=== PATIENT | female | born 1940 | race Caucasian/White ===

== ENCOUNTER 2017-06-01 09:20 | Emergency (ER) | payer BC ==
[2017-06-01 09:34] VITALS: TEMP 97.7
--- NOTE | 2017-06-01 09:58 | EDPHY ---
H & P Smoking Status: Never smoked Time Seen by Provider: 06/01/17 09:39 HPI/ROS: CHIEF COMPLAINT: Diarrhea, near syncope HISTORY OF PRESENT ILLNESS: 76-year-old female presents to the emergency department by private vehicle after having a near syncopal episode at home early this morning. The patient states that she was a woken around midnight with abdominal cramping. She went into the bathroom and had several episodes of watery diarrhea. She did not notice any blood. She states that while she was sitting on the toilet she became extremely weak and collapsed to the floor. She does not think that she lost consciousness. She does not think that she hit her head. She states that she was so weak she was unable to get up off the floor. She laid there for about 10 minutes and then was able to get herself up get herself back into bed. She had several more episodes of diarrhea where she was able to ambulate to the bathroom. She has felt nauseous although no vomiting. She has a mild posterior headache. She denies chest pain or difficulty breathing. She still has some mild abdominal cramping. No recent travel. No fevers or chills. No URI symptoms. No neck or back pain. REVIEW OF SYSTEMS: Constitutional: No fever, no chills. Eyes: No double or blurry vision. ENT: No sore throat. Respiratory: No cough, no shortness of breath. Cardiac: No chest pain. Gastrointestinal: Abdominal cramping and diarrhea as above. No vomiting. Genitourinary: No dysuria. Musculoskeletal: No neck or back pain. Skin: No rashes. Neurological: headache. (Collette Mike) Past Medical/Surgical History: Seizure disorder on Trileptal, recent injection 5 days ago in her right eye for venous occlusion (Collette Mike) Social History: Single and lives alone in [place] (Collette Mike) Physical Exam: General Appearance: Alert, no distress. Mentating normally and answering questions appropriately. No visible signs of trauma to her head. Eyes: Pupils equal and round. Extraocular motions are all intact. ENT: Mouth: Mucous membranes very dry. Respiratory: No wheezing, rhonchi, or rales, lungs are clear to auscultation. Cardiovascular: Regular rate and rhythm. Gastrointestinal: Abdomen is soft and nontender, no masses, no rebound or guarding, bowel sounds normal. Neurological: Alert and oriented x 3, cranial nerves II through XII grossly intact Skin: Warm and dry, no rashes. Musculoskeletal: Nontender to palpate along the cervical, thoracic or lumbar spine. Neck is supple. Extremities: Full range of motion and no peripheral edema. Psychiatric: Patient is oriented X 3, there is no agitation. (Collette Mike) Constitutional: Initial Vital Signs Temperature (C) 36.5 C 06/01/17 09:31 Heart Rate 86 06/01/17 09:31 Respiratory Rate 18 06/01/17 09:31 Blood Pressure 170/82 H 06/01/17 09:31 O2 Sat (%) 95 06/01/17 09:31 O2 Delivery Mode Room Air Allergies/Adverse Reactions: codeine Allergy (Verified 06/01/17 09:30) Penicillins Allergy (Verified 06/01/17 09:30) Home Medications: Medication Instructions Recorded Trileptal 06/01/17 Medical Decision Making - Diagnostics Imaging: Discussed imaging studies w/ funeral planner Radiologist ED Course/Re-evaluation: 76-year-old female presents to the emergency department with multiple episodes of diarrhea and having near syncopal episode at home. Her laboratory studies were unremarkable. CT imaging of the head was negative. The patient was ambulatory. She was eating an apple and having some crackers. She would like to be discharged home. She declined admission. She was instructed to have close follow-up with primary care provider this week, tomorrow. Patient's [id number] was at bedside who verbalized understanding and agreed. (Collette Mike) The patient was evaluated and managed by the physician virtual assistant for advertisers. I have reviewed this chart and I agree with the findings and plan of care as documented , as indicated by my signature. I am the secondary supervising physician. ( Katerina Medina) Differential Diagnosis: Syncope including but not limited to vasovagal syncope, arrhythmia, dehydration , and blood loss. Diarrhea including but not limited to infectious diarrhea, gastroenteritis, colitis (Collette Mike) - Data Points Laboratory Results: Laboratory Results 06/01/17 09:55 06/01/17 09:55 Medications Given: Discontinued Medications Sodium Chloride (Ns) 500 mls @ 1,000 mls/hr IV EDNOW ONE PRN Reason: Protocol Stop: 06/01/17 10:28 Last Admin: 06/01/17 10:18 Dose: 500 mls Departure - Departure Disposition: Home, Routine, Self-Care Clinical Impression: Diarrhea, Near syncope Condition: Good Instructions: Acute Diarrhea (ED), Near Syncope (ED) Additional Instructions: Diet and activity as tolerated. Follow up with her primary care provider tomorrow to recheck. Return to the emergency department if you developed recurring episodes of feeling weak or if you feel worse in any way. Referrals: Fany Morillo MD [Primary Care Provider] - As per Instructions
[2017-06-01] MEDS ORDERED: NS 500 ML IV ONE (09:59)
[2017-06-01 10:04] LABS: % IMMATURE GRANULYOCYTES 0.3 % (0.0-1.1); ABSOLUTE IMMATURE GRANULOCYTES 0.03 10^3/uL (0.00-0.10); ADD DIFF? NO; ADD MORPH? NO; ADD SCAN? NO; ATYPICAL LYMPHOCYTE FLAG 0 (0-99); FRAGMENT RBC FLAG 0 (0-99); HEMATOCRIT 42.3 % (38.0-47.0); HEMOGLOBIN 14.8 g/dL (12.6-16.3); LEFT SHIFT FLG 0 (0-99); LIPEMIA HEMOLYSIS FLAG 90 (0-99); MEAN CELL HEMOGLOBIN 32.9 pg (27.9-34.1); MEAN PLATELET VOLUME 8.9 fL (8.7-11.7); PLATELET CLUMPS FLAG 0 (0-99); PLATELET COUNT 228 10^3/uL (150-400); RED CELL DISTRIBUTION WIDTH 12.4 % (11.5-15.2)
[2017-06-01 10:23] LABS: ANION GAP 13 mEq/L (8-16); CALCIUM 11.6 mg/dL (8.5-10.4); CARBON DIOXIDE 28 mEq/l (22-31); CHLORIDE 91 mEq/L (97-110); CREATININE 0.6 mg/dL (0.6-1.0); GLOMERULAR FILTRATION RATE > 60; GLUCOSE 120 mg/dL (70-100); POTASSIUM 3.9 mEq/L (3.5-5.2); SODIUM 132 mEq/L (134-144)
--- NOTE | 2017-06-01 10:24 | CPEKG ---
Heart Rate: 82 RR Interval: 732 P-R Interval: 156 QRSD Interval: 84 QT Interval: 356 QTC Interval: 416 P [place]: 61 QRS [place]: 47 T Wave [place]: 82 EKG Severity - NORMAL ECG - EKG Impression: SINUS RHYTHM Electronically Signed By: Katerina Medina 01-Jun-2017 16:06:27
[2017-06-01 10:34] LABS: TROPONIN I < 0.012 ng/mL (0.000-0.034)
[2017-06-01 12:18] VITALS: BP 167/86; PULSE 78; RESP 14; O2SAT 95
== END 2017-06-01 12:21 | disposition home or self-care (01) ==
DX: R55 Syncope and collapse (principal); R19.7 Diarrhea, unspecified; E86.9 Volume depletion, unspecified

== ENCOUNTER → 2018-02-16 | Outpatient (CLI) | payer BC | LOC: BMCIMAGING 13:54 | PROVIDERS: ATTEND Orthopaedic Surgery | DX: M25.551 Pain in right hip (principal) ==

== ENCOUNTER → 2018-02-23 | Outpatient (CLI) | payer BC | LOC: BMCIMAGING 11:18 | PROVIDERS: ATTEND Orthopaedic Surgery | DX: M25.551 Pain in right hip (principal) ==

== ENCOUNTER → 2018-03-02 | Outpatient (CLI) | payer BC | LOC: BMCIMAGING 13:17 | PROVIDERS: ATTEND Orthopaedic Surgery | PROC: 3E0U3KZ Introduction of Other Diagnostic Substance into Joints, Percutaneous Approach (ICD-10-PCS; principal; 2018-03-02) | DX: M16.11 Unilateral primary osteoarthritis, right hip (principal) ==

== ENCOUNTER → 2018-06-21 | Outpatient (CLI) | payer BC | LOC: FIMAGING 11:03 | PROVIDERS: ATTEND Internal Medicine | DX: Z12.31 Encounter for screening mammogram for malignant neoplasm of breast (principal) ==